=== PATIENT | male | born 1950 | race Caucasian/White ===

== ENCOUNTER 2020-12-06 13:49 | Inpatient (IN) | payer MEDICARE, SELFPAY ==
--- NOTE | ~2020-12-06 | CT_ITS ---
EXAMINATION: CT abdomen pelvis w con DATE: 12/06/2020 21:24 INDICATION: Rectal bleeding. Leukocytosis. TECHNIQUE: Computed tomography (CT) of the abdomen and pelvis was performed with 100 mL Omnipaque 350 intravenous contrast. Automated exposure control and iterative reconstruction technique were employe d. The dose-length product was 1460.53 mGy-cm. COMPARISON: None. FINDINGS: The visualized portions of the lung bases demonstrate minimal atelectasis. No pleural effus ion. The heart size is normal. No pericardial effusion. The liver, gallbladder, pancreas, and adrenal glands are normal. Calcifications in the spleen are consistent with old granulomatous disease. There are cysts in the kidneys measuring up to 3.8 cm on the right. There is a 2 mm stone in right kidney. There are 2 stones in left kidney measuring up to 4 mm. There is diverticulosis of the colon without evidence of diverticulitis. There are no dilated loops of bowel. The appendix is not visualized. The re are no pathologically enlarged lymph nodes. There is no free intraperitoneal fluid. There is sever e lower lumbar spondylosis. IMPRESSION: 1. Small bilateral nonobstructing kidney stones. Reviewed, dictated and finalized at location A.
[2020-12-06 13:57] VITALS: BP 136/60; PULSE 84; RESP 16; TEMP 35.9; O2SAT 99
[2020-12-06 14:18] LABS: Basophils Absolute Auto 0.1 K/mm3 (0.0-0.1); Basophils Percent Auto 0.5 % (0.2-1.2); Eosinophils Absolute Auto 0.2 K/mm3 (0-0.3); Eosinophils Percent Auto 1.4 % (0-4.4); Hematocrit 40.4 % (42.0-52.0); Hemoglobin 13.1 g/dL (14.0-18.0); Immature Granulocyte Absolute 0.19 K/mm3 (0.00-0.031); Immature Granulocyte Percent A 1.2 % (0-0.5); Lymphocytes Absolute Auto 1.16 K/mm3 (0.9-3.2); Lymphocytes Percent Auto 7.5 % (18.3-44.2); Mean Corpuscular HGB Conc 32.4 g/dl (32-36); Mean Corpuscular Hemoglobin 27.9 pg (26-34); Mean Corpuscular Volume 86.1 fl (80-100); Mean Platelet Volume 9.8 fl (7.4-10.4); Monocytes Absolute Auto 1.1 K/mm3 (0.1-0.6); Neutrophils Absolute Auto 12.7 K/mm3 (1.3-6.7); Neutrophils Percent Auto 82.4 % (45.5-73.1); Platelet Count Result 263 k/mm3 (150-375); Red Blood Count 4.69 M/mm3 (4.6-6.20); Red Cell Distribution Width 15.6 % (11.5-14.5); White Blood Count 15.5 K/mm3 (4.5-10.0)
[2020-12-06 14:29] LABS: Alanine Aminotransferase 20 U/L (4-50); Albumin Level 3.8 g/dL (3.5-5.1); Alkaline Phosphatase 76 U/L (38-126); Anion Gap 10 mmol/L (8-16); Aspartate Amino Transferase 19 U/L (17-59); Bilirubin,Total 0.4 mg/dL (0.2-1.3); Blood Urea Nitrogen 28 mg/dL (9-20); Calcium 9.4 mg/dL (8.4-10.2); Carbon Dioxide 20 mmol/L (22-30); Chloride 105 mmol/L (98-107); Estimated CRCL calculation 99 ml/min; Estimated Glomerular Filt Rate > 60; Glucose 125 mg/dL (65-110); Potassium 4.3 mmol/L (3.4-5.0); Sodium 135 mmol/L (137-145)
[2020-12-06 14:44] LABS: Prothrombin Time 13.4 Seconds (11.1-14.7)
[2020-12-06 14:45] LABS: Partial Thromboplastin Time 29.3 SECONDS (22.3-36.8)
--- NOTE | 2020-12-06 16:34 | ED.GIBLEED ---
HPI - GI Bleed General Chief complaint: GI Bleed Stated complaint: rectal bleeding Time Seen by Provider: 12/06/20 16:03 Source: patient and RN notes reviewed Mode of arrival: ambulatory Limitations: no limitations History of Present Illness HPI Narrative: This is a 70 year old male who presents for evaluation of rectal bleeding starting yesterday. He was evaluated yesterday in the emergency department at [facility]. He had labs performed and he was discharged. He has been scheduled for an upper endoscopy and colonoscopy on Wednesday with Dr. Kimble. He has returned to ER today because he has continued to have multiple episodes of bleeding. He states this morning he passed stool with large blood clots. He has had at least 4 episode of passing nothing but blood clots. He reports having a colonoscopy in the past that shows polyps but he is unsure of diverticuli or hemorrhoids. He denies abdominal pain, nausea, vomiting, lightheadedness or fever. He takes aspirin 81 mg for heart disease. Related Data Home Medications Medication Instructions Recorded Confirmed atorvastatin 40 mg PO QPM 12/06/20 12/06/20 celecoxib 200 mg PO QAM AND QPM 12/06/20 12/06/20 diclofenac sodium 75 mg PO BID 12/06/20 12/06/20 finasteride [Proscar] 5 mg PO DAILY 12/06/20 12/06/20 fluticasone propionate 2 spray INTRANASAL DAILY PRN 12/06/20 12/06/20 metoprolol succinate 50 mg PO DAILY 12/06/20 12/06/20 omeprazole 40 mg PO DAILY 12/06/20 12/06/20 tamsulosin 0.4 mg PO HS 12/06/20 12/06/20 Allergies Allergy/AdvReac Type Severity Reaction Status Date / Time ciprofloxacin Allergy Cramping Verified 12/06/20 21:15 of the Muscles Review of Systems Review of Systems: All systems reviewed & are unremarkable except as noted in HPI and below PMFSH Past Medical History Medical History Arthritis Benign prostatic hyperplasia Gastroesophageal reflux disease Hyperlipidemia Hypertension Surgical History Surgical History History of bilateral knee replacement History of fusion of cervical spine History of hemorrhoidectomy History of lumbar surgery History of repair of left rotator cuff Family History Family History (Updated 12/06/20 @ 21:51 by Ellie Renner, RN) Other Malignant neoplasm of prostate Mother Chronic obstructive pulmonary disease FH: emphysema Sibling Diabetes mellitus Social History Social History (Updated 12/06/20 @ 21:51 by Ellie Renner, RN) Social History: The patient lives in [place] with his . 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 Lifelong nonsmoker. Drinks alcohol once a week in moderation. No illicit substance abuse. Designates his , Roxana, as his surrogate decision maker. Code status: Full code. Smoking status: Never smoker Drinks per week: 4 Substance use: current Substance use type: marijuana Living arrangements: with family Occupation/Education: retired Gender identity (if verbalized by the patient): Male Spiritual care concerns: No Exam Const: General: no acute distress and alert Orientation/consciousness: patient oriented x3 Eyes: EOM: EOMs intact bilaterally Resp: Effort & Inspection: normal respiratory effort and no retractions Auscultation: clear to auscultation bilaterally Cardio: Rate: regular rate Rhythm: regular rhythm Heart sounds: no murmurs GI: GI Palp: Yes Soft to palpation, No Tenderness to palpation present (GI) and No Guarding due to palpation present (GI) Auscultation: normal bowel sounds Other: no external hemorrhoids: digital exam shows dark blood Skin: General skin exam: normal color Rashes: no rashes Neuro: General: patient oriented x3, moves all extremities and CN's II-XI intact bilaterally Course Reevaluation(s) Reevaluation #1: I have have discussed plan to admit with patient. He is agreeable. No bleeding at this time Date: 12/06/20 Time:
[2020-12-06 17:50] VITALS: BP 129/58; PULSE 79; RESP 18; O2SAT 100
[2020-12-06 19:49] LABS: Hematocrit 41.6 % (42.0-52.0); Hemoglobin 13.4 g/dL (14.0-18.0)
--- NOTE | 2020-12-06 20:00 | PM.IMHP ---
H&P: HPI History of Present Illness Date/Time: 12/06/20 20:00 Chief Complaint: Bloody stools. Narrative: This is a pleasant 70-year-old male with history of hemorrhoids, GERD, hypertension, hyperlipidemia, benign prostatic hyperplasia presented to the emergency department earlier today via private vehicle from home for evaluation of bloody stools. He was in his usual state of health yesterday and some time around 15:00 he had the urge to have a bowel movement and reports passing quite a bit of blood with blood clots. He had several episodes thereafter and in fact was seen in the emergency department at [facility] in [place], where he typically gets a majority of his care, at which time his labs were stable and it was felt that he would be okay for discharge with for an outpatient colonoscopy. It is my understanding that he is scheduled for endoscopy this coming Wednesday with Dr. Kimble. Unfortunately he continues to have bloody stools and has been passing large amounts of clots. He had similar rectal bleeding albeit in lesser amounts many years ago prior to his hemorrhoidectomy. He has not had any issues with hemorrhoids recently, to his knowledge. He has not had any significant abdominal discomfort, nausea, vomiting, or bloating. No fever, chills, or sweats. He has not traveled recently and denies sick contacts. No history of C diff however he did take prophylactic antibiotics prior to a dental procedure sometime last week. Review of Systems Review of Systems: Twelve systems were reviewed with pertinent positives and negatives as per HPI. No syncope or near syncope though he felt lightheaded with his most recent bowel movement before coming back to the ER today. He denies chest pain, pleuritic pain, and palpitations. No shortness of breath. No recent cold or flu symptoms. He denies cough and shortness of breath. No chest pain. He is fully vaccinated for COVID. He has been having issues with his right shoulder and I believe he does have a known rotator cuff tear. Except as documented, all other systems were reviewed and are negative. [facility] Past Medical History Medical History (Updated 12/06/20 @ 21:07 by Raven Zeng PA-C) Arthritis Benign prostatic hyperplasia Gastroesophageal reflux disease Hyperlipidemia Hypertension Surgical History Surgical History (Updated 12/06/20 @ 21:00 by Raven eZng PA-C) History of bilateral knee replacement History of fusion of cervical spine History of hemorrhoidectomy History of lumbar surgery History of repair of left rotator cuff Family History Family History Other Malignant neoplasm of prostate Social History Social History (Updated 12/06/20 @ 21:02 by Raven Zeng PA-C) Social History: The patient lives in [place] with his . 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 Lifelong nonsmoker. Drinks alcohol once a week in moderation. No illicit substance abuse. Designates his , Roxana, as his surrogate decision maker. Code status: Full code. Drinks per week: 4 Substance use: current Substance use type: marijuana Gender identity (if verbalized by the patient): Male Spiritual care concerns: No Meds Home Medications and Allergies Home Medications Medication Instructions Recorded Confirmed Type atorvastatin 12/06/20 History celecoxib mg 12/06/20 History diazepam 12/06/20 History docusate sodium PO 12/06/20 History finasteride mg 12/06/20 History fluticasone propionate INTRANASAL 12/06/20 History metoprolol succinate PO 12/06/20 History omeprazole 12/06/20 History tamsulosin mg PO 12/06/20 12/06/20 History Allergies Allergy/AdvReac Type Severity Reaction Status Date / Time ciprofloxacin Allergy Cramping Verified 12/06/20 18:52 of the Muscles Vital Signs Vital Signs - 24 hr 12/06/20 13:57 12/06/20 17:50 Temperature 96.7 F L Pulse Rate 84 79 Respiratory Rate 16 18 Blood Pr
--- NOTE | 2020-12-06 20:50 | ADMGEN ---
This patient, Blaine Riddle III, was admitted to Medical Room 349-01. Patient/family oriented to hospital policies and general routines including ID bracelet, bed and alarms, visiting hours, pain management, procedures, bathroom and other care routines, personal items, smoking policy, room service/diet, and visiting hours. Information on how to activate the Rapid Response Team has been discussed. Patient/Family are encouraged to report perceived risks to care and to ask questions if they do not understand what they are told or what they should do.
[2020-12-06 21:03] VITALS: BMI 36.3
--- NOTE | 2020-12-06 21:12 | PC.NURSE ---
Patient down to CT via wheelchair.
--- NOTE | 2020-12-06 21:30 | PC.NURSE ---
Patient returned to room from CT via wheelchair.
[2020-12-06 22:00] VITALS: BP 138/92; PULSE 82; RESP 20; TEMP 36.1; O2SAT 98
[2020-12-06] MEDS: MELATONIN 5 MG TABLET PO (22:44)
[2020-12-06 22:49] LABS: Alanine Aminotransferase 17 U/L (4-50); Albumin Level 3.6 g/dL (3.5-5.1); Alkaline Phosphatase 73 U/L (38-126); Aspartate Amino Transferase 16 U/L (17-59); Bilirubin,Total 0.7 mg/dL (0.2-1.3)
[2020-12-06] MEDS: TAMSULOSIN HCL 0.4 MG CAPSULE PO (23:59)
[2020-12-06] MEDS: ATORVASTATIN 40 MG TABLET PO (23:59)
[2020-12-07 01:17] LABS: Hematocrit 36.2 % (42.0-52.0); Hemoglobin 11.6 g/dL (14.0-18.0)
[2020-12-07 06:00] VITALS: BP 121/56; PULSE 67; RESP 18; TEMP 36.6; O2SAT 97
[2020-12-07 06:13] LABS: Hematocrit 35.9 % (42.0-52.0); Hemoglobin 11.6 g/dL (14.0-18.0); Mean Corpuscular HGB Conc 32.3 g/dl (32-36); Mean Corpuscular Hemoglobin 28.1 pg (26-34); Mean Corpuscular Volume 86.9 fl (80-100); Mean Platelet Volume 9.5 fl (7.4-10.4); Platelet Count Result 175 k/mm3 (150-375); Red Blood Count 4.13 M/mm3 (4.6-6.20); Red Cell Distribution Width 15.5 % (11.5-14.5); White Blood Count 10.1 K/mm3 (4.5-10.0)
[2020-12-07 06:32] LABS: Anion Gap 6 mmol/L (8-16); Blood Urea Nitrogen 22 mg/dL (9-20); Calcium 8.9 mg/dL (8.4-10.2); Carbon Dioxide 24 mmol/L (22-30); Chloride 103 mmol/L (98-107); Estimated CRCL calculation 93 ml/min; Estimated Glomerular Filt Rate > 60; Glucose 123 mg/dL (65-110); Potassium 4.3 mmol/L (3.4-5.0); Sodium 133 mmol/L (137-145)
[2020-12-07 08:06] VITALS: PULSE 67
[2020-12-07] MEDS: FINASTERIDE 5 MG TABLET PO (08:06)
[2020-12-07] MEDS: METOPROLOL SUCCINATE EXT REL 50 MG TABCR PO (08:06)
[2020-12-07] MEDS: PANTOPRAZOLE 40 MG TABLET PO (08:06)
[2020-12-07 11:20] VITALS: O2SAT 95
[2020-12-07 11:56] LABS: Hematocrit 36.7 % (42.0-52.0); Hemoglobin 12.1 g/dL (14.0-18.0)
--- NOTE | 2020-12-07 12:48 | PCRCNOTE ---
PT. STATES HE DOESN'T WANT TO WEAR A CPAP WHILE HERE BUT HE WILL LET THE NURSE KNOW IF HE CHANGES HIS MIND. R.N. IS AWARE.
--- NOTE | 2020-12-07 13:38 | PM.IMPN ---
Progress Note: A&P Assessment and Plan (1) Lower GI bleed: Code(s): K92.2 - Gastrointestinal hemorrhage, unspecified Status: Acute Assessment and Plan: Patient has been passing fairly large quantities of bright red blood per rectum admixed with clots thus the bleed is likely hemorrhoidal or diverticular in nature. He was admitted overnight for close observation And consult to the GI specialist. patient's hemoglobin on arrival was 13, and decreased to 11 this morning. patient does have a colonoscopy scheduled for Wednesday (12/10) as an outpatient We are continuing to monitor H&H Q 6 hours. No need for acute transfusion at this time. GIs input is appreciated. (2) Leukocytosis: Code(s): D72.829 - Elevated white blood cell count, unspecified Status: Acute Assessment and Plan: CT of the abdomen and pelvis was completed which was showing no acute abnormality. No signs of diverticulitis. Patient does have a long history of frequent UTIs but states this is all been resolved since having a large kidney stone removed a few months ago. He denies any urinary tract symptoms, shortness of breath, cough or any other symptoms at this time. (3) Hypertension: Code(s): I10 - Essential (primary) hypertension Status: Acute Assessment and Plan: Blood pressures 121/56 today. Will continue holding home blood pressure medication since he is NPO at this time. Continue monitoring. (4) Gastroesophageal reflux disease: Code(s): K21.9 - Gastro-esophageal reflux disease without esophagitis Status: Acute Assessment and Plan: No acute issues. Continue PPI. (5) Hyperlipidemia: Code(s): E78.5 - Hyperlipidemia, unspecified Status: Acute Assessment and Plan: LFTs are normal. Continue statin once able to eat and drink. (6) Benign prostatic hyperplasia: Code(s): N40.0 - Benign prostatic hyperplasia without lower urinary tract symptoms Status: Acute Assessment and Plan: No acute issues. Continue tamsulosin and finasteride. (7) Arthritis: Code(s): M19.90 - Unspecified osteoarthritis, unspecified site Status: Chronic Assessment and Plan: Hold Celebrex for now in light of GI bleed. Time Spent With Patient Time with patient: 25 - 35 minutes Subjective Date/time seen: 12/07/20 13:38 Interval history: Date of service 12/07/2020: patient reports passing bright red blood and dark clots in his stool since 12/05 at 3:30 pm. He continues to have bright red blood on the toilet paper as well as some dark clots in some bowel movements. His last colonoscopy was 10 years ago and he has another repeat colonoscopy scheduled for Wednesday, Prior to all this blood being present. He denies any fevers, chills, nausea, vomiting, abdominal pain, lightheadedness, dizziness, leg swelling, calf pain, chest pain, shortness of breath, or any other symptoms at this time. Review of Systems Review of Systems: All systems reviewed & are unremarkable except as noted in HPI and below Exam Narrative: General: 70-year-old man standing up walking around the room. Appears comfortable. In no acute distress. Skin: No jaundice or cyanosis. Good skin turgor. Neck: Full range of motion. Supple. Respiratory: Lungs are clear to auscultation bilaterally. No bony chest wall tenderness. Cardiovascular: The heart has a regular rate and rhythm without murmur. Lower extremities: No lower extremity edema. Distal pulses are easily palpated. No calf tenderness to palpation. Gastrointestinal: The abdomen is soft, nontender and nondistended with active bowel sounds. Psychiatric: Lucid and oriented. Memory intact. Neurologic: No focal deficits. Speech is clear. No facial drooping. Objective Data Vital Signs Vital Signs: Vital Signs - 24 hr 12/06/20 13:57 12/06/20 17:50 12/06/20 22:00 Temperature 96.7
[2020-12-07 14:00] VITALS: BP 128/69; PULSE 73; RESP 16; TEMP 37.1; O2SAT 98
--- NOTE | 2020-12-07 16:40 | WPDGICN ---
Assessment and Plan Assessment and plan (1) GI bleed: Code(s): K92.2 - Gastrointestinal hemorrhage, unspecified <Ava Martinez APRN - Last Filed: 12/07/20 16:58> Status: Acute <Ava Martinez APRN - Last Filed: 12/07/20 16:58> Assessment and Plan: GI Consultation Shelia Martinez K[employer]TER for Dr. Camarena 12/07/20 This is an 70 year old patient with a history of GERD, HLD, HTN, BPH, Hemorrhoids s/p hemorrhoidectomy, bilateral knee replacement, spinal fusion, left rotator cuff repair, appendectomy, and hx of kidney stones. who now presents for evaluation of bright red rectal bleeding. Patient is seen at the request of the Hospitalist service to evaluate for . The patient?s primary care provider is Dr. Christian. Primary gastroenterology is Dr. Kimble. His , Roxana was present during consult. Patient present to ER for bright red rectal bleeding that started in large amounts with clots on 12/05. [facility] [place] and discharged home as it was stable. Bleeding continued and presented to ER at [place]. Since admission rectal bleeding and clots have become less frequent. He did show a picture in his phone of his stool and appeared to be melanous with bright red blood and clots. He has been alternating multiple NSAIDS and recently Celebrax 200 mg BID two weeks ago for arthritic pain along with combination of ASA 81 mg daily. Last BM with trace bleeding with small clots and malodorous. Pyrosis controlled with PPI. Last colonoscopy was greater than 10 years ago. Last EGD was greater than 20. He is scheduled on Sunday 12/[address] Kimble for EGD and Colonoscopy. Patient denies abdominal pain, nausea or vomiting, trouble swallowing, bloating, loss of appetite or weight, early satiety, heartburn, diarrhea or constipation, rectal bleeding or melena. Patient denies fever, jaundice, scleral icterus, dark urine, light stool, itching, hot or cold intolerance, chest pain, shortness of breath at rest, hematuria, dysuria, new cough or visual changes, easy bruising, tingling of the skin, bone pain or tremors. No history of endocarditis, rheumatic fever, dental prophylaxis, heart valve surgery, or bleeding disorder. Allergies: Ciprofloxacin Medications: see list Social history: nonsmoker, social drinker, marijunana user. and lives with , Roxana Family history: negative for GI malignancy. Last colonoscopy was greater than 10 years ago. Last EGD over 20 years ago. Physical exam: No lower extremity edema, jaundice, spider angioma, palmar erythema. Skull is normocephalic atraumatic. Sclera are non-icteric. Oropharynx is clear. Neck is supple without thyromegaly. Lungs are clear. Heart is rate and rhythm regular. S1 and S2 normal. Normal active bowel sounds. Obese, Non-tender, non-rigid, non-distended without hepatosplenomegaly or masses. No guarding. Rectal is deferred. Neuro is conscious and alert ?3. Labs: 12/07: wbc 10, hgb 12, hct 36, mcv 87, platelets 175, LFT normal Imaging: CT abd/pelvis with contrast: small bilateral non obstructing kidney stones, diverticulosis without diverticulitis. Assessment and plan: A. Hematochezia/Melena/Abnormal Imaging-Digestive/GERD/Acute Blood loss anemia: -Upper GI bleed secondary to PUD vs diverticular bleed vs. AVMS vs. hemorrhoids vs. neoplasm -multiple NSAIDs and ASA -CT abd/pelvis showed diverticulosis with no evidence of diverticulitis -recently started on Celebrex 200 mg BID -hematochezia has been improving -Last BM was formed this am with small amount of blood with clots -hgb 12, hct 36, mcv 87 -hgb/hct stable -continue to monitor H&H, transfuse as needed -Care with NSAIDs, ASA and anticoagulants -Protonix 40 mg BID and add carafate 1 gram AC/HS -Advised to keep scheduled EGD/Colonoscopy 12/[address] Kimble -If bleeding resumes or H&H has large decline, consider monitoring and EGD/Colon Wednesday -okay for discharge if labs stable Thank yo
[2020-12-07] MEDS: ATORVASTATIN 40 MG TABLET PO (17:23)
[2020-12-07 20:26] LABS: Hematocrit 36.9 % (42.0-52.0)
[2020-12-07] MEDS: MELATONIN 5 MG TABLET PO (20:32)
[2020-12-07] MEDS: SUCRALFATE 1 GM TABLET PO (20:32)
[2020-12-07] MEDS: TAMSULOSIN HCL 0.4 MG CAPSULE PO (20:32)
[2020-12-07] MEDS: PANTOPRAZOLE SODIUM IV 40 MG VIAL IV PUSH (20:32)
[2020-12-07 21:00] VITALS: BP 143/78; PULSE 65; RESP 18; TEMP 36.7; O2SAT 98
[2020-12-08 05:54] VITALS: BP 131/66; PULSE 63; RESP 18; TEMP 36.1; O2SAT 99
[2020-12-08] MEDS: SUCRALFATE 1 GM TABLET PO ×2 (06:17→11:46)
[2020-12-08 08:44] VITALS: PULSE 63
[2020-12-08] MEDS: METOPROLOL SUCCINATE EXT REL 50 MG TABCR PO (08:44)
[2020-12-08] MEDS: FINASTERIDE 5 MG TABLET PO (08:44)
[2020-12-08] MEDS: PANTOPRAZOLE SODIUM IV 40 MG VIAL IV PUSH (08:45)
[2020-12-08 10:09] LABS: Hematocrit 35.6 % (42.0-52.0); Hemoglobin 11.6 g/dL (14.0-18.0); Mean Corpuscular HGB Conc 32.6 g/dl (32-36); Mean Corpuscular Hemoglobin 27.6 pg (26-34); Mean Corpuscular Volume 84.8 fl (80-100); Mean Platelet Volume 9.6 fl (7.4-10.4); Platelet Count Result 205 k/mm3 (150-375); Red Cell Distribution Width 14.9 % (11.5-14.5); White Blood Count 11.4 K/mm3 (4.5-10.0)
--- NOTE | 2020-12-08 12:07 | WPDGIPROGNO ---
Progress Note: A&P Additional Plan GI Migue Kimble 08 Dec 2020 No BRBPR, melena ort other gi compliants Abdominal exam soft/NT Pertinent labs: Hct 36 A/P A. GERD: PPI B. Hematochezia/Melena/Abnormal Imaging-Digestive and acute Blood loss anemia on NSAIDS and aspirin: -Upper GI bleed secondary to PUD vs diverticular bleed vs. AVMS vs. hemorrhoids vs. neoplasm -multiple NSAIDs and ASA -CT abd/pelvis showed diverticulosis with no evidence of diverticulitis -recently started on Celebrex 200 mg BID -hematochezia has been improving -Last BM was formed this am with small amount of blood with clots -hgb 12, hct 36, mcv 87 -hgb/hct stable -continue to monitor H&H, transfuse as needed -Care with NSAIDs, ASA and anticoagulants -Protonix 40 mg BID and add carafate 1 gram AC/HS OK with me for discharge. Advised to keep scheduled EGD/Colonoscopy 12/[address] Shyanne Boogie per Hospitalist service. Thank you, Agapito Camarena MD [phone] Subjective Date/time seen: 12/08/20 12:07 Objective Data Vital Signs Vital Signs: Vital Signs - 24 hr 12/07/20 14:00 12/07/20 21:00 12/08/20 05:54 Temperature 37.1 C 36.7 C 36.1 C L Pulse Rate 73 65 63 Respiratory Rate 16 18 18 Blood Pressure 128/69 143/78 H 131/66 Pulse Oximetry 98 98 99 12/08/20 08:44 Temperature Pulse Rate 63 Respiratory Rate Blood Pressure Pulse Oximetry Intake/Output Intake/Output: Intake & Output 12/05/20 12/06/20 12/07/20 12/08/20 23:59 23:59 23:59 23:59 Intake Total 100 2117 1310 Output Total 2730 950 Balance 100 -613 360 Meds/Results Medications: Active Medications Generic Name Dose Route Start Last Admin Trade Name Freq PRN Reason Stop Dose Admin Amlodipine Besylate 5 mg 12/08/20 18:00 Amlodipine Besylate 5 Mg Tablet PO DAILY@1800 LUCY Atorvastatin Calcium 40 mg 12/06/20 23:40 12/07/20 17:23 Atorvastatin 40 Mg Tablet PO 40 mg QPM LUCY Administration Finasteride 5 mg 12/07/20 09:00 12/08/20 08:44 Finasteride 5 Mg Tablet PO 5 mg DAILY LUCY Administration Fluticasone Propionate 2 spray 12/06/20 23:34 Fluticasone Propionate 0.05% Na Spr 16 Gm Btl (*Bkc) NASAL DAILY PRN Allergy Symptoms Melatonin 5 mg 12/06/20 21:57 12/07/20 20:32 Melatonin 5 Mg Tablet PO 5 mg HS PRN Administration Insomnia Metoprolol Succinate 50 mg 12/07/20 09:00 12/08/20 08:44 Metoprolol Succinate Ext Rel 50 Mg Tabcr PO 50 mg DAILY LUCY Administration Ondansetron HCl 4 mg 12/06/20 17:29 Ondansetron Inj 4 Mg/2 Ml Vial IV PUSH Q4H PRN Nausea Pantoprazole Sodium 40 mg 12/07/20 21:00 12/08/20 08:45 Pantoprazole Sodium Iv 40 Mg Vial IV PUSH 40 mg Q12HR LUCY Administration Sucralfate 1 gm 12/07/20 21:00 12/08/20 11:46 Sucralfate 1 Gm Tablet PO 1 gm ACHS LUCY Administration Tamsulosin HCl 0.4 mg 12/06/20 23:40 12/07/20 20:32 Tamsulosin Hcl 0.4 Mg Capsule PO 0.4 mg HS LUCY Administration Radiology Results: ITS Impressions Abdomen/Pelvis CT 12/06/20 21:28 IMPRESSION: 1. Small bilateral nonobstructing kidney stones. Labs Labs: Laboratory Results - last 24 hr 12/07/20 12/08/20 12/08/20 19:55 09:26 09:26 WBC 11.4 H RBC 4.20 L Hgb 12.0 L Cancelled 11.6 L Hct 36.9 L Cancelled 35.6 L MCV 84.8 MCH 27.6 MCHC 32.6 RDW 14.9 H Plt Count 205 MPV 9.6
--- NOTE | 2020-12-08 13:04 | PM.DS ---
DS: Admitting Diagnosis Admitting Diagnosis Hematochezia DS: Discharge Diagnosis Discharge Diagnosis (1) Lower GI bleed: Code(s): K92.2 - Gastrointestinal hemorrhage, unspecified Status: Acute Assessment and Plan: Patient is a 70-year-old man with a history of hemorrhoids, GERD, hypertension, dyslipidemia, BPH, who presented to the emergency room from home for evaluation of bloody stools and clots of blood in his stools which began 12/05 at 3:30 pm. he was seen at [facility] in [place] for his symptoms on due to worsening symptoms. they evaluated his labs and determined he was stable to be discharged with a sooner EGD in colostomy scheduled for Wednesday12/10/2020. The patient went home and had more symptoms a few hours later and came to our emergency room for further evaluation. Initial vitals showed stable blood pressure 136/60, normal pulse 84 beats per minute, temperature normal, normal oxygenation on room air. Initial labs showed slightly elevated leukocytosis at 15,500, Slight elevation of neutrophils at 82%,normocytic anemia with a hemoglobin of 13, hematocrit 40%. normal coag panel. Slight hyponatremia at 135. Otherwise normal labs. CT abdomen pelvis was checked due to leukocytosis. Which showed small bilateral nonobstructing kidney stones, otherwise no acute abnormality or infection. Blood cultures were obtained showing no growth at this time. The patient was admitted into the hospital for GI bleed with a consult to the GI specialist. He did have a slight decrease in his hemoglobin and hematocrit to 11.6/35%. patient's symptoms was improving with IV Protonix during his hospitalization. Patient has been increasing his NSAID use recently due to some arthritis issues to his right shoulder and bilateral knees. He was seen by the GI specialist to recommended if his symptoms are improving and H&H stable he can follow-up with his outpatient EGD and colonoscopy in 2 days on 12/10/2020. Patient is otherwise feeling well without any complaints and normal is resolution of his symptoms. He was discharged on pantoprazole 40 mg twice daily, to refrain from any NSAID use. Return to ER warnings given. Patient understands agrees the plan all questions answered. (2) Leukocytosis: Code(s): D72.829 - Elevated white blood cell count, unspecified Status: Acute Assessment and Plan: CT of the abdomen and pelvis was completed which was showing no acute abnormality. No signs of diverticulitis. Patient does have a long history of frequent UTIs but states this is all been resolved since having a large kidney stone removed a few months ago. He denies any urinary tract symptoms, shortness of breath, cough or any other symptoms at this time. (3) Hypertension: Code(s): I10 - Essential (primary) hypertension Status: Acute Assessment and Plan: Blood pressures 131/66 today. Continue home medications. (4) Gastroesophageal reflux disease: Code(s): K21.9 - Gastro-esophageal reflux disease without esophagitis Status: Acute Assessment and Plan: No acute issues. Continue PPI. (5) Hyperlipidemia: Code(s): E78.5 - Hyperlipidemia, unspecified Status: Acute Assessment and Plan: LFTs are normal. Continue statin once able to eat and drink. (6) Benign prostatic hyperplasia: Code(s): N40.0 - Benign prostatic hyperplasia without lower urinary tract symptoms Status: Acute Assessment and Plan: No acute issues. Continue tamsulosin and finasteride. (7) Arthritis: Code(s): M19.90 - Unspecified osteoarthritis, unspecified site Status: Chronic Assessment and Plan: Hold Celebrex until EGD/Colonoscopy to see findings for acute GI bleeding. DS: Summary Hospital Course Hospital Course: See above Status at Discharge Cognitive/behavioral status at discharge: Stable, improv
== END 2020-12-08 14:25 | disposition home or self-care (01) | DRG 378 ==
LOC: ANHED 16:42 → ANH3MED 18:38
PROVIDERS: Emergency Medicine; Nurse Practitioner; Physician Assistant; Admitting Provider Student in an Organized Health Care Education/Training Program; Emergency Provider General Practice; PCP Internal Medicine; Visit Provider Internal Medicine
DX: K92.1 Melena (principal); D62 Acute posthemorrhagic anemia; D72.829 Elevated white blood cell count, unspecified; R93.3 Abnormal findings on diagnostic imaging of other parts of digestive tract; I10 Essential (primary) hypertension; K21.9 Gastro-esophageal reflux disease without esophagitis; E78.5 Hyperlipidemia, unspecified; N40.0 Benign prostatic hyperplasia without lower urinary tract symptoms; M19.011 Primary osteoarthritis, right shoulder; Z96.653 Presence of artificial knee joint, bilateral; Z98.1 Arthrodesis status; Z79.1 Long term (current) use of non-steroidal anti-inflammatories (NSAID); Z79.899 Other long term (current) drug therapy
CPT/HCPCS: 36415; 74177; 80048; 80053; 80076; 83605; 83735; 85014; 85018; 85025; 85027; 85610; 85730; 86850; 86900; 86901; 87040; 96374; 99285; A9270; C9113; G0378; J0131; Q9967

== ENCOUNTER 2020-12-10 01:04 | Day surgery (SDC) | payer MEDICARE, SELFPAY ==
[2020-12-09 10:52] VITALS: BMI 39.0
[2020-12-10 07:03] VITALS: BP 128/51; PULSE 79; RESP 18; TEMP 36; O2SAT 98; BMI 38.3
--- NOTE | 2020-12-10 07:25 | WPDGICN ---
Assessment and Plan Assessment and plan (1) Rectal bleeding: Code(s): K62.5 - Hemorrhage of anus and rectum Status: Acute Assessment and Plan: Patient with recurrent recent rectal bleeding. Differential diagnosis is broad but includes hemorrhoids, diverticular disease, and polyps. Colonoscopy will be performed further recommendations will be given after endoscopy. (2) Chronic GERD: Code(s): K21.9 - Gastro-esophageal reflux disease without esophagitis Status: Acute Assessment and Plan: Patient with a history of acid reflux. He has an esophageal web dilated many years ago. He has been maintained on omeprazole daily with no recurrent heartburn. Because of chronicity of symptoms or recent bleeding an EGD will be performed today. (3) Overweight: Code(s): E66.3 - Overweight Status: Acute (4) History of colon polyps: Code(s): Z86.010 - Personal history of colonic polyps Status: Acute Assessment and Plan: Patient previously found to have colon polyps. Previous endoscopies 2003 2006. Further recommendations will be given after endoscopy given this history. GI Consult Note Consult date/time: 12/10/20 07:25 HPI: Blaine Riddle III is a 70 year old male Presents with complaints of bright red blood per rectum. Patient has a distant history of colonoscopy: Polyps were identified in 2003 in 2006. Limited exam was performed by Dr. Howe several years ago and apparently hemorrhoids were identified. Patient did well until for 5 days ago when he began to experience bright red blood per rectum. Initially he was observed at [facility]. Hemoglobin stable he was discharged however had recurrent blood in stools and was admitted overnight at [facility] this weekend. Patient denies abdominal pain. His hemoglobin has remained stable. He is quite concerned about this recent bleeding. He does have a distant history of GE reflux disease felt stable with omeprazole. Previously he had a mild esophageal web or stricture. He has taken omeprazole for perhaps 20 years. Because of bleeding and history of GE reflux EGD is additionally requested. Patient's family history is noncontributory. Review of Systems Review of Systems: All systems reviewed & are unremarkable except as noted in HPI and below [facility] Past Medical History Medical History (Updated 12/10/20 @ 07:29 by Cody Kimble MD) Benign essential hypertension Cyst of scrotum Mixed hyperlipidemia Nephrolithiasis Obstructive sleep apnea (adult) (pediatric) Prediabetes Primary insomnia Primary osteoarthritis involving multiple joints UTI (urinary tract infection) Surgical History Surgical History H/O right knee surgery Social History Social History (Updated 11/06/20 @ 10:40 by Nilda Vivar MA) Smoking status: Never smoker Alcohol intake: current Drinks per week: 6 Alcohol use details: social Substance use: current Substance use type: marijuana Last use: once a month Living arrangements: with family Gender identity (if verbalized by the patient): Male Spiritual care concerns: No Meds Home Medications and Allergies Home Medications Medication Instructions Recorded Confirmed Type oxymetazoline 0.05 % nasal mist 2 spray NASAL Q12H PRN 12/25/19 12/10/20 History atorvastatin 40 mg tablet 40 mg PO DAILY #90 tablet 05/01/20 12/10/20 Rx tamsulosin 0.4 mg capsule 0.4 mg PO BID #180 cap 05/01/20 12/10/20 Rx metoprolol succinate 25 mg 50 mg PO DAILY tablet 07/05/20 12/10/20 History tablet,extended release 24 hr fluticasone propionate 50 2 spray NASAL DAILY #15.8 ml 11/18/20 12/10/20 Rx mcg/actuation nasal spray,suspension amlodipine 5 mg tablet 5 mg PO DAILY #90 tablet 11/26/20 12/10/20 Rx finasteride 5 mg PO DAILY 12/09/20 12/10/20 History loratadine [Claritin] 10 mg PO DAILY 12/09/20 12/10/20 History pantopr
[2020-12-10] MEDS: LACTATED RINGERS 1,000 ML 150 ML IV CONT (07:27)
--- NOTE | 2020-12-10 07:50 | WPDANESEPPF ---
Anes - Initial Pre Proc Eval Procedure: Operation Date: 12/10/20 08:00 Proposed Procedures p Esophagogastroduodenoscopy & Screening Colonoscopy - Cody Kimble MD Date/Time: 12/10/20 07:50 Surgeon: Cody Kimble MD Pre Op Diagnosis: GERD, hx of colon polyps, rectal bleeding Patient Data Age: 70 Gender: M Height: 1.75 m Weight: 117.7 kg Last Vital Signs Temp 36.0 C L 12/10/20 07:03 Pulse 79 12/10/20 07:03 Resp 18 12/10/20 07:03 BP 128/51 L 12/10/20 07:03 Pulse Ox 98 12/10/20 07:03 Allergies Allergy/AdvReac Type Severity Reaction Status Date / Time ciprofloxacin AdvReac tendon pain Verified 12/10/20 07:00 Home Medications Medication Instructions Recorded Confirmed Type oxymetazoline 0.05 % nasal mist 2 spray NASAL Q12H PRN 12/25/19 12/10/20 History atorvastatin 40 mg tablet 40 mg PO DAILY #90 tablet 05/01/20 12/10/20 Rx tamsulosin 0.4 mg capsule 0.4 mg PO BID #180 cap 05/01/20 12/10/20 Rx metoprolol succinate 25 mg 50 mg PO DAILY tablet 07/05/20 12/10/20 History tablet,extended release 24 hr fluticasone propionate 50 2 spray NASAL DAILY #15.8 ml 11/18/20 12/10/20 Rx mcg/actuation nasal spray,suspension amlodipine 5 mg tablet 5 mg PO DAILY #90 tablet 11/26/20 12/10/20 Rx finasteride 5 mg PO DAILY 12/09/20 12/10/20 History loratadine [Claritin] 10 mg PO DAILY 12/09/20 12/10/20 History pantoprazole 40 mg PO BID 12/09/20 12/10/20 History Patient hx anesthesia problems: none Family hx anesthesia problems: none PMFSH Past Medical History Medical History Benign essential hypertension Cyst of scrotum Mixed hyperlipidemia Nephrolithiasis Obstructive sleep apnea (adult) (pediatric) Prediabetes Primary insomnia Primary osteoarthritis involving multiple joints UTI (urinary tract infection) Surgical History Surgical History H/O right knee surgery Social History Social History Smoking status: Never smoker Alcohol intake: current Drinks per week: 6 Alcohol use details: social Substance use: current Substance use type: marijuana Last use: once a month Living arrangements: with family Gender identity (if verbalized by the patient): Male Spiritual care concerns: No Anes - Eval Final PreProcedure Day of Procedure 12/10/20 07:50 Patient weight: obese Heart: regular rate and rhythm Lungs: clear to auscultation Airway: Mallampati scale class II Neurological: alert and oriented Last oral intake: >/= 8 hours ASA classification: III Emergent: no Anesthetic plan: proceed Anesthesia type and monitoring: general GIVS and standard monitoring Informed Consent: The patient's anesthetic plan and its attendant risks and benefits were discussed with the patient/family/POA. Questions were solicited and answers provided to the satisfaction of the patient/family/POA.
[2020-12-10] MEDS: BENZOCAINE (*SP) 60 ML SPRAY CAN (HURRICAINE) 1 SPRAY MUCOUS MEM (08:04)
[2020-12-10 08:31] VITALS: BP 119/87; PULSE 74; RESP 18; O2SAT 99
[2020-12-10 08:41] VITALS: BP 100/58; PULSE 74; RESP 18; O2SAT 99
[2020-12-10 08:51] VITALS: BP 123/56; PULSE 66; RESP 18; O2SAT 98
== END 2020-12-10 09:05 | disposition home or self-care (01) ==
PROVIDERS: PCP Internal Medicine; Visit Provider Internal Medicine Gastroenterology
PROC: 0DJ08ZZ Inspection of Upper Intestinal Tract, Via Natural or Artificial Opening Endoscopic (ICD-10-PCS; CPT 43235; principal; 2020-12-10 08:00)
DX: K21.9 Gastro-esophageal reflux disease without esophagitis (principal); K31.7 Polyp of stomach and duodenum; K44.9 Diaphragmatic hernia without obstruction or gangrene; Q39.4 Esophageal web; K57.30 Diverticulosis of large intestine without perforation or abscess without bleeding; K64.8 Other hemorrhoids; Z86.010 Personal history of colon polyps; K62.5 Hemorrhage of anus and rectum; I10 Essential (primary) hypertension; E78.2 Mixed hyperlipidemia; G47.33 Obstructive sleep apnea (adult) (pediatric); R73.03 Prediabetes; G47.00 Insomnia, unspecified; M19.90 Unspecified osteoarthritis, unspecified site; F12.90 Cannabis use, unspecified, uncomplicated; E66.9 Obesity, unspecified; Z68.38 Body mass index [BMI] 38.0-38.9, adult
CPT/HCPCS: 43251; 43450; 45378; 88305; J2704; J7120

== ENCOUNTER 2021-02-13 14:27 | Inpatient (IN) | payer MEDICARE, SELFPAY ==
--- NOTE | ~2021-02-13 | CT_ITS ---
EXAMINATION: CT abdomen pelvis wo con DATE: 02/13/2021 17:43 INDICATION: Urinary tract infection. History of kidney stones. TECHNIQUE: Computed tomography (CT) of the abdomen and pelvis was performed without intravenous contr ast. Automated exposure control and iterative reconstruction technique were employed. Exam dose: 157 9.61 mGy-cm total exam DLP. COMPARISON: 12/06/2020 CT abdomen pelvis with IV contrast material FINDINGS: Peripheral posterolateral 3 mm left lower lobe nodule. Calcified right hilar nodes. The dayanna g bases are clear of infiltrate or consolidation. Normal heart size. No pericardial or pleural effusi on. Small sliding hiatal hernia. The liver, gallbladder, bile ducts, pancreas and pancreatic duct are unremarkable. There are multiple calcified splenic granulomas. Splenic size is within normal range. Normal morphology of the adrenal glands. 3 and 3.5 cm probable right renal cysts. At least one pinpoint nonobstructing right renal calculus. T here are 2 pinpoint nonobstructing left renal calculi and an approximately 5 mm nonobstructing lower pole left renal calculus. There is no ureteral calculus or hydroureteronephrosis. There is extensive air throughout the wall of the urinary bladder. There is a prominent air-fluid lev el within the bladder lumen. Normal caliber of the abdominal aorta. No intraperitoneal or retroperitoneal or pelvic mass lesion or adenopathy or ascites. The appendix is not visualized. There are innumerable diverticula of the left and right colon; no CT evidence of diverticulitis. No b owel obstruction, bowel wall thickening, pneumatosis or intraperitoneal free air. No suspicious osteolytic or osteoblastic lesions. There is multilevel degenerative disc disease of lumbar spine, most prominent at L4-5 and particularl y L5-S1. Degenerative spurring of the lower thoracic spine. Bilateral hip osteoarthritis. IMPRESSION: Emphysematous cystitis Bilateral nonobstructive nephrolithiasis Right renal cysts Extensive diverticulosis of left and right colon Small sliding hiatal hernia Reviewed, dictated and finalized at [facility]. Reviewed, dictated and finalized at [facility].
[2021-02-13 14:45] VITALS: BP 141/77; PULSE 86; RESP 16; TEMP 36.6; O2SAT 93
[2021-02-13 15:40] LABS: Add Urine Microscopic? YES; Appearance Urine Cloudy (Clear); Bacteria Urine 1+ /hpf; Bilirubin Urine Negative (Negative); Blood Urine 3+ (Negative); Color Urine Yellow (Yellow); Glucose Urine UA Negative (Negative); Ketones Urine Negative (Negative); Leukocyte Esterase Ur 3+ LEU/UL (Negative); Mucus Urine Rare /lpf; Nitrate Urine Negative (Negative); Protein Urine 1+ mg/dL (Negative); RBC Urine >75 /hpf (0-2); Specific Grav Ur 1.012 (1.001-1.035); Squamous Epithelial Cell Urine Rare /hpf (Few); Urobilinogen Urine Negative mg/dL (<2.0); WBC Urine >75 /hpf
--- NOTE | 2021-02-13 16:57 | ED.MALEGU ---
HPI - Male Genitourinary General Chief complaint: Urogenital-Male Stated complaint: uti Time Seen by Provider: 02/13/21 16:57 Source: patient Mode of arrival: ambulatory Limitations: no limitations History of Present Illness HPI Narrative: Patient is a 70-year-old male with a history of recurrent hypertension, hydrocele, recurrent urinary tract infections, nephrolithiasis, presenting for evaluation of positive urine culture found at his outpatient urology visit in the setting of dysuria, frequency and hematuria. Patient states he began having symptoms 3 days ago. Patient denies fever, chills or flank pain. He states he has a history of recurrent urinary tract infections with multidrug-resistant organism found in his urine culture. Patient was seen by his urologist, Dr. Adair, for later with [facility] on February 12, had a urinalysis and urine culture sent, results of urine culture were positive today, notable for Klebsiella pneumonia extended spectrum beta-lactamase, ESBL, MDRO. Patient was referred to his primary care physician, who saw him in the office today and then referred him to our emergency department for IV antibiotics. Patient lives in [facility], wanted to be seen and admitted to this facility if treatment was necessary. Patient denies any fatigue, nausea or vomiting. Patient states he has a history of nephrolithiasis in June 2019. Stone was removed by his urologist Dr. Adair at that time. No known history of recurrent renal stones. Patient denies any current abdominal pain. Patient presenting with outside paperwork. Urine culture notable for Klebsiella pneumonia extended spectrum beta-lactamase, MDRO, susceptible to amikacin, gentamicin, meropenem, piperacillin?tazobactam, resistant to ampicillin, cefazolin, cefepime, ceftriaxone, ciprofloxacin, trimethoprim?sulfamethoxazole. Related Data Home Medications Medication Instructions Recorded Confirmed oxymetazoline 0.05 % nasal mist 2 spray NASAL Q12H PRN 12/25/19 12/10/20 metoprolol succinate 25 mg 50 mg PO DAILY tablet 07/05/20 12/10/20 tablet,extended release 24 hr finasteride 5 mg PO DAILY 12/09/20 12/10/20 loratadine [Claritin] 10 mg PO DAILY 12/09/20 12/10/20 pantoprazole 40 mg PO BID 12/09/20 12/10/20 Allergies Allergy/AdvReac Type Severity Reaction Status Date / Time ciprofloxacin AdvReac tendon pain Verified 02/13/21 12:57 Review of Systems Review of Systems: CONSTITUTIONAL: Denies fever, chills, or sweats. EYES: Denies visual changes, redness, or discharge. ENT: Denies rhinorrhea, congestion, sore throat, or otalgia. CARDIOVASCULAR: Denies chest pain, palpitations, or edema. RESPIRATORY: Denies cough or dyspnea. GASTROINTESTINAL: Denies abdominal pain, nausea, vomiting, or diarrhea. GENITOURINARY: Reports dysuria and hematuria SKIN: Denies rash or itching. MUSCULOSKELETAL: Denies back pain, joint pain, or myalgia. NEUROLOGIC: Denies headache, numbness, or weakness. [facility] Past Medical History Medical History Benign essential hypertension Cyst of scrotum Mixed hyperlipidemia Nephrolithiasis Obstructive sleep apnea (adult) (pediatric) Prediabetes Primary insomnia Primary osteoarthritis involving multiple joints UTI (urinary tract infection) Surgical History Surgical History H/O right knee surgery Social History Social History Smoking status: Never smoker Second hand tobacco smoke exposure: No Alcohol intake: current Drinks per week: 6 Alcohol use details: social Substance use: current Substance use type: marijuana Last use: once a month Gender identity (if verbalized by the patient): Male Sexual Orientation (if Verbalized by the Patient): Straight or Heterosexual Spiritual care concerns: No Exam Narrative: GENERAL: Awake, alert, conversant
[2021-02-13 17:00] VITALS: BP 138/78; PULSE 74; RESP 20; TEMP 36.3; O2SAT 99
[2021-02-13 17:47] LABS: Basophils Absolute Auto 0.1 K/mm3 (0.0-0.1); Basophils Percent Auto 0.8 % (0.2-1.2); Eosinophils Absolute Auto 0.2 K/mm3 (0-0.3); Eosinophils Percent Auto 2.7 % (0-4.4); Hemoglobin 15.6 g/dL (14.0-18.0); Immature Granulocyte Percent A 1.2 % (0-0.5); Lymphocytes Absolute Auto 0.93 K/mm3 (0.9-3.2); Lymphocytes Percent Auto 10.9 % (18.3-44.2); Mean Corpuscular HGB Conc 33.2 g/dl (32-36); Mean Corpuscular Volume 84.4 fl (80-100); Mean Platelet Volume 9.3 fl (7.4-10.4); Monocytes Absolute Auto 0.5 K/mm3 (0.1-0.6); Monocytes Percent Auto 6.4 % (2.6-8.5); Neutrophils Absolute Auto 6.6 K/mm3 (1.3-6.7); Platelet Count Result 189 k/mm3 (150-375); Red Blood Count 5.57 M/mm3 (4.6-6.20); Red Cell Distribution Width 14.4 % (11.5-14.5); White Blood Count 8.5 K/mm3 (4.5-10.0)
[2021-02-13] MEDS: SODIUM CHLORIDE 0.9% IV 1,000 ML 999 ML IV CONT (17:56)
[2021-02-13 18:01] LABS: Anion Gap 9 mmol/L (8-16); Blood Urea Nitrogen 18 mg/dL (9-20); Calcium 9.6 mg/dL (8.4-10.2); Carbon Dioxide 26 mmol/L (22-30); Chloride 107 mmol/L (98-107); Estimated CRCL calculation 89 ml/min; Estimated Glomerular Filt Rate > 60; Glucose 121 mg/dL (65-110); Potassium 4.1 mmol/L (3.4-5.0); Sodium 142 mmol/L (137-145)
--- NOTE | 2021-02-13 19:58 | PM.IMHP ---
H&P: HPI History of Present Illness Date/Time: 02/13/21 19:58 Chief Complaint: Chills Narrative: This is a 70 year male with past medical history significant for hypertension, dyslipidemia, rotator cuff injury, benign prostatic hyperplasia, urolithiasis, recurrent urinary tract infection with multi-drug resistant organism. Patient presented to the emergency room today after he was seen at his primary care physician's office where a urine sample turned out to be urine tract infection. Patient states that he has been having pain and burning with urination, urinary frequency, urinary urgency, chills, fevers. He has been followed up in the outpatient setting with Urology had a recent cystoscopy with retrograde pyelograms. Patient is here for IV antibiotics he denied any discomfort at the time of my visit. Preliminary workup was significant for CT of abdomen and pelvis with emphysematous cystitis, complete blood count and basic metabolic profile were within normal limits. Review of Systems Review of Systems: Dysuria, urinary frequency ,urinary urgency, chills. Constitutional: Constitutional: Reports chills, Denies fatigue, Reports fever(s), Denies lethargy, Denies malaise and Denies weakness Eyes: Eyes: Denies change in vision ENT: Reports system reviewed and no additional complaints, except as documented Cardiovascular: Cardiovascular: Reports no additional cardiovascular complaints Respiratory: Respiratory: Reports no additional respiratory complaints Gastrointestinal: Gastrointestinal: Reports no additional gastrointestinal complaints Genitourinary: Genitourinary: Reports dysuria, Reports urinary frequency and Reports urinary urgency Integumentary/Breasts: Skin/Breast: Reports system reviewed and no additional complaints, except as docu Neurologic: Reports system reviewed and no additional complaints, except as documented Psychiatric: Psychiatric: Reports no additional psychiatric complaints Endocrine: Endocrine: Reports no additional endocrine complaints Hematologic/Lymphatic: Hematologic/Lymphatic: Reports no additional hematologic/lymphatic complaints Allergic/Immunologic: Allergic/Immunologic: Reports no additional allergic/immunologic complaints [facility] Past Medical History Medical History Benign essential hypertension Cyst of scrotum Mixed hyperlipidemia Nephrolithiasis Obstructive sleep apnea (adult) (pediatric) Prediabetes Primary insomnia Primary osteoarthritis involving multiple joints UTI (urinary tract infection) Surgical History Surgical History H/O right knee surgery Family History Family History (Updated 02/13/21 @ 21:48 by Mariann Lozoya RN) Mother Emphysema lung Chronic obstructive pulmonary disease Social History Social History Second hand tobacco smoke exposure: No Alcohol intake: current Drinks per week: 6 Alcohol use details: social Substance use: current Substance use type: marijuana Last use: once a month Gender identity (if verbalized by the patient): Male Sexual Orientation (if Verbalized by the Patient): Straight or Heterosexual Spiritual care concerns: No Meds Home Medications and Allergies Home Medications Medication Instructions Recorded Confirmed Type tamsulosin 0.4 mg capsule 0.4 mg PO BID #180 cap 05/01/20 02/13/21 Rx metoprolol succinate 25 mg 50 mg PO DAILY tablet 07/05/20 02/13/21 History tablet,extended release 24 hr fluticasone propionate 50 2 spray NASAL DAILY #15.8 ml 11/18/20 02/13/21 Rx mcg/actuation nasal spray,suspension amlodipine 5 mg tablet 5 mg PO DAILY #90 tablet 11/26/20 02/13/21 Rx finasteride 5 mg PO DAILY 12/09/20 02/13/21 History atorvastatin 40 mg tablet 40 mg PO DAILY #90 tablet 01/08/21 02/13/21 Rx Vitamin D3 25 mcg PO DAILY 02/13/21
--- NOTE | 2021-02-13 21:25 | ADMGEN ---
This patient, Blaine Riddle III, was admitted to 2 Medical Room 243-. Patient/family oriented to hospital policies and general routines including ID bracelet, bed and alarms, visiting hours, pain management, procedures, bathroom and other care routines, personal items, smoking policy, room service/diet, and visiting hours. Information on how to activate the Rapid Response Team has been discussed. Patient/Family are encouraged to report perceived risks to care and to ask questions if they do not understand what they are told or what they should do.
[2021-02-13] MEDS: ACETAMINOPHEN 500 MG TABLET 1000 MG PO (21:32)
[2021-02-13 21:33] VITALS: BP 135/63; PULSE 70; RESP 18; TEMP 36.6; O2SAT 97
[2021-02-13 21:34] VITALS: BMI 41.0
--- NOTE | 2021-02-13 23:12 | PCRCNOTE ---
Pt wears CPAP at home but does not want to wear here. No order was received. No machine is in room.
[2021-02-13] MEDS: diazePAM (*CRX) 5 MG TABLET PO (23:54)
[2021-02-14 06:00] VITALS: BP 125/71; RESP 16; TEMP 36.5; O2SAT 97
[2021-02-14] MEDS: PANTOPRAZOLE 40 MG TABLET PO (06:42)
[2021-02-14] MEDS: ACETAMINOPHEN 325 MG TABLET 650 MG PO ×2 (06:48→21:41)
[2021-02-14] MEDS: TAMSULOSIN HCL 0.4 MG CAPSULE PO ×2 (08:26→16:10)
[2021-02-14] MEDS: FLUTICASONE PROPIONATE 0.05% NA SPR 16 GM BTL (*BKC) 2 SPRAY NASAL (08:26)
[2021-02-14] MEDS: ASPIRIN 81 MG CHEWABLE TABLET PO (08:26)
[2021-02-14] MEDS: ATORVASTATIN 40 MG TABLET PO (08:26)
[2021-02-14] MEDS: FINASTERIDE 5 MG TABLET PO (08:26)
[2021-02-14] MEDS: CHOLECALCIFEROL 1,000 UNITS TABLET 1000 UNITS PO (08:26)
[2021-02-14] MEDS: amLODIPine BESYLATE 5 MG TABLET PO (08:26)
[2021-02-14] MEDS: DICLOFENAC SOD 75 MG TABLET.EC PO ×2 (08:37→21:41)
--- NOTE | 2021-02-14 12:08 | PM.IMPN ---
Progress Note: A&P Assessment and Plan (1) Urinary tract infection: Code(s): N39.0 - Urinary tract infection, site not specified Status: Acute Assessment and Plan: Patient is a 70-year-old man with a history of BPH, hydrocele, frequent UTIs, CAD, hypertension, who presented to the emergency room from his primary care's office for abnormal urine culture results. The patient states on Wednesday he developed urinary symptoms and on Wednesday called his urologist to ordered a urinalysis with reflux culture. Urine culture resulted growing Klebsiella pneumoniae ESBL with only IV antibiotics sensitive to the bacteria. The patient's urologist told him to go to his PCP who then sent into the emergency room for IV antibiotics for treatment of his UTI. Initial vitals showed elevated blood pressure 141/77, normal heart rate, afebrile, normal oxygenation on room air. Initial labs showed normal white blood cell count, elevated neutrophils at 78%. Normal H&H. Normal BMP other than glucose of 121. Urinalysis on arrival grew 3+ leukocyte esterase, and greater than 75 WBCs and 1+ bacteria but we are adding you the results of his urine culture as outpatient and so he was admitted for a multi-drug resistant UTI and started on IV Zosyn. Will continue monitoring his symptoms and he will most likely need 10 days of IV antibiotics. He may be able to stay in the hospital versus be discharged with PICC line and IV antibiotics to be set up as outpatient Continue monitoring his symptoms. Deescalate antibiotics when necessary. (2) MDRO (multiple drug resistant organisms) resistance: Status: Acute Assessment and Plan: Sensitive to Zosyn (3) Extended spectrum beta lactamase (ESBL) resistance: Code(s): Z16.12 - Extended spectrum beta lactamase (ESBL) resistance Status: Acute Assessment and Plan: Sensitive to Zosyn (4) CAD (coronary artery disease): Code(s): I25.10 - Atherosclerotic heart disease of [place] coronary artery without angina pectoris Status: Acute Assessment and Plan: Stable. Denies any chest pain. Continue home meds Continue to monitor (5) Benign essential hypertension: Code(s): I10 - Essential (primary) hypertension Status: Acute Assessment and Plan: Stable. Blood pressure normal today at 125/71. Continue home meds Continue to monitor (6) Mixed hyperlipidemia: Code(s): E78.2 - Mixed hyperlipidemia Status: Acute Assessment and Plan: Continue statin (7) Chronic low back pain: Qualifiers: Back pain laterality: unspecified Sciatica presence: unspecified whether sciatica present Qualified Code(s): M54.5 - Low back pain; G89.29 - Other chronic pain Code(s): M54.5 - Low back pain; G89.29 - Other chronic pain Status: Acute Assessment and Plan: Tylenol as needed (8) Chronic GERD: Code(s): K21.9 - Gastro-esophageal reflux disease without esophagitis Status: Acute Assessment and Plan: Continue PPI (9) Obstructive sleep apnea (adult) (pediatric): Code(s): G47.33 - Obstructive sleep apnea (adult) (pediatric) Status: Acute Assessment and Plan: Continue CPAP Time Spent With Patient Time with patient: 25 - 35 minutes Subjective Date/time seen: 02/14/21 12:08 Interval history: Date of Service 02/14/21: The patient continues to have some urinary discomfort with dysuria, trouble starting his urinary stream, foul odor to his urine, some small pieces blood clots and abnormal color. It has gotten slightly better since admission yesterday on IV antibiotics. He does have some slight suprapubic abdominal discomfort as well. Otherwise he denies any fevers, chills, chest pain, shortness of breath, cough, nausea, vomiting, leg swelling or any other symptoms at this time. Review of Systems Review of Systems: All systems reviewed & are unremarkable except a
[2021-02-14 14:00] VITALS: BP 110/95; PULSE 92; RESP 18; TEMP 36.3; O2SAT 98
[2021-02-14] MEDS: ERTAPENEM 1 GM/NS 50 ML 1 GM/50 ML BAG IVPB (16:05)
--- NOTE | 2021-02-14 17:23 | WPDINFPN2 ---
Progress Note: A&P Assessment and Plan (1) Urinary tract infection: Code(s): N39.0 - Urinary tract infection, site not specified Status: Acute Assessment and Plan: UTI, symptomatic REC Ertapenem through 02/27. Midline and discharge planning Subjective Date/time seen: 02/14/21 17:23 Objective Data Vital Signs Vital Signs: Vital Signs - 24 hr 02/13/21 21:33 02/14/21 06:00 02/14/21 14:00 Temperature 36.6 C 36.5 C 36.3 C L Pulse Rate 70 92 Respiratory Rate 18 16 18 Blood Pressure 135/63 125/71 110/95 H Pulse Oximetry 97 97 98 Intake/Output Intake/Output: Intake & Output 02/11/21 02/12/21 02/13/21 02/14/21 23:59 23:59 23:59 23:59 Intake Total 1050 1150 Output Total 725 Balance 1050 425 Meds/Results Medications: Active Medications Generic Name Dose Route Start Last Admin Trade Name Freq PRN Reason Stop Dose Admin Acetaminophen 650 mg 02/13/21 19:02 02/14/21 06:48 Acetaminophen 325 Mg Tablet PO 650 mg Q4H PRN Administration Mild Pain (1-3) or Fever Amlodipine Besylate 5 mg 02/14/21 09:00 02/14/21 08:26 Amlodipine Besylate 5 Mg Tablet PO 5 mg DAILY LUCY Administration Aspirin 81 mg 02/14/21 08:00 02/14/21 08:26 Aspirin 81 Mg Chewable Tablet PO 81 mg DAILY@0800 LUCY Administration Atorvastatin Calcium 40 mg 02/14/21 09:00 02/14/21 08:26 Atorvastatin 40 Mg Tablet PO 40 mg DAILY LUCY Administration Diazepam 5 mg 02/13/21 23:01 02/13/21 23:54 Diazepam (*Crx) 5 Mg Tablet PO 5 mg HS PRN Administration Insomnia Diclofenac Sodium 75 mg 02/13/21 23:01 02/14/21 08:37 Diclofenac Sod 75 Mg Tablet.Ec PO 75 mg BID PRN Administration arthritis pain Enoxaparin Sodium 40 mg 02/15/21 09:00 Enoxaparin 40 Mg/0.4 Ml Syringe SUB-Q DAILY LUCY Finasteride 5 mg 02/14/21 09:00 02/14/21 08:26 Finasteride 5 Mg Tablet PO 5 mg DAILY LUCY Administration Fluticasone Propionate 2 spray 02/14/21 09:00 02/14/21 08:26 Fluticasone Propionate 0.05% Na Spr 16 Gm Btl (*Bkc) NASAL 2 spray DAILY LUCY Administration Ertapenem 1 gm in 50 mls @ 100 mls/hr 02/14/21 15:00 02/14/21 16:40 Invanz 1 Gm/Ns 50 Ml IVPB Infused Q24H LUCY Infusion Ondansetron HCl 4 mg 02/13/21 19:02 Ondansetron Inj 4 Mg/2 Ml Vial IV PUSH Q4H PRN Nausea Pantoprazole Sodium 40 mg 02/14/21 07:30 02/14/21 06:42 Pantoprazole 40 Mg Tablet PO 40 mg DAILY@0730 LUCY Administration Tamsulosin HCl 0.4 mg 02/14/21 09:00 02/14/21 16:10 Tamsulosin Hcl 0.4 Mg Capsule PO 0.4 mg BID LUCY Administration Vitamin D 1,000 units 02/14/21 09:00 02/14/21 08:26 Cholecalciferol 1,000 Units Tablet PO 1,000 units DAILY LUCY Administration Radiology Results: ITS Impressions Abdomen/Pelvis CT 02/13/21 17:45 IMPRESSION: Emphysematous cystitis Bilateral nonobstructive nephrolithiasis Right renal cysts Extensive diverticulosis of left and right colon Small sliding hiatal hernia Labs Labs: Laboratory Results - last 24 hr 02/13/21 02/13/21 17:36 17:36 WBC 8.5 RBC 5.57 Hgb 15.6 Hct 47.0 MCV 84.4 MCH 28.0 MCHC 33.2 RDW 14.4 Plt Count 189 MPV 9.3 Immature Gran % (Auto) 1.2 H Neut % (Auto) 78.0 H Lymph % (Auto) 10.9 L [place] % (Auto) 6.4 Eos % (Auto) 2.7 Baso % (Auto) 0.8 Lymph # (Auto) 0.93 [place] # (Auto) 0.5 Eos # (Auto) 0.2 Baso # (Auto) 0.1 Abs Immat Gran (auto) 0.10 H Absolute Neuts (auto) 6.6 Absolute Nucleated RBC 0.0 Nucleated RBC % 0.0 Sodium 142 Potassium 4.1 Chloride 107 Carbon Dioxide 26 Anion Gap 9 BUN 18 Creatinine 0.90 Estim Creat Clear Calc 89 Estimated GFR > 60 Glucose 121 H Calcium 9.6
[2021-02-14] MEDS: diazePAM (*CRX) 5 MG TABLET PO (21:41)
[2021-02-14 22:00] VITALS: BP 143/74; PULSE 68; RESP 14; TEMP 36.9; O2SAT 97
--- NOTE | 2021-02-14 22:45 | CONS_ITS ---
DATE OF CONSULTATION: 02/14/2021 REASON FOR CONSULTATION: UTI. HISTORY OF PRESENT ILLNESS: A 70-year-old male who has had 2 years of frequent urinary tract infections by his description, although the amount of true infection versus simple positive cultures is not apparent on speaking with the patient. He has had postvoid residuals, which have been normal in the past, but he does have known prostate enlargement. He has had past cystoscopy and at one point had obliteration of a kidney stone as there was concern over it being a nidus of infection. The patient was in his usual state of health until 3 days before admission when he awoke with new and abrupt onset of dysuria with urethral burning. Also mild urinary hesitancy, also urinary frequency. Also suprapubic discomfort without arie pain. One day before admission, he thinks he had passage of some dark flecks of material without any gross hematuria as such. No fever, chills, or sweats. No recent antibiotics. He has had past multiple positive urine culture that I reviewed in the computer system. He had a scheduled appointment with his urologist 1-day before admission and at that point his voiding symptoms had improved and no intervention was undertaken. However, as his symptoms recurred on the evening prior to admission he presented to the emergency room yesterday and underwent CT followed by antibiotics. He is now on ertapenem. Consultation requested. No immunosuppressants. No recent bladder surgery. No events here in the hospital. ALLERGIES: CIPROFLOXACIN CAUSED TENDON PAIN. OTHERS NOT PERTINENT. HABITS: No tobacco. Social drinker. No illicit drugs. PRESENT MEDICATIONS: See above. PAST MEDICAL HISTORY: Known hydroceles, hypertension, GERD, hyperlipidemia, [place]. Osteoarthritis with bilateral knee replacement, the right side being done about 2 years ago and the patient believes responsible for his recurrent UTI in terms of perioperative catheter. Also cervical spine fusion, lumbar surgery, and left rotator cuff repair. REVIEW OF SYSTEMS: Right rotator cuff pain and diminished range of motion. 14-point review is otherwise negative. FAMILY HISTORY: No stone disease. Positive for diabetes, prostate cancer. Others not pertinent. 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 Lives in [place]. 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 PHYSICAL EXAMINATION: GENERAL: Elderly male, who appears younger than his actual age. No acute distress since arrival yesterday. VITAL SIGNS: Afebrile. 92, 18, 110/95, 98% on room air. SKIN: Few ecchymoses. No rashes. Warm and dry. NODES: No cervical adenopathy. EENT: The conjunctivae are normal. The oropharynx, oral mucosa normal. NECK: No masses, thyromegaly, or meningismus. LUNGS: Clear to auscultation and percussion. No CVAT. CARDIAC: Regular rate and rhythm without murmur, gallop, or rub. Pulses are 2+ and equal. ABDOMEN: Nontender, soft. No organomegaly. No masses. EXTREMITIES: No clubbing, cyanosis, edema. MUSCULOSKELETAL: Knees have no evidence of arthritis or infection. NEUROLOGIC: Awake, alert, oriented, appropriate. Normal gait. LABORATORY DATA: His outpatient urine culture performed 2 days before admission, reviewed by myself, showed an ESBL-producing Klebsiella pneumoniae. Blood cultures not done until today. Other labs show white count 11.4 yesterday, 8.5 today; hemoglobin 15.6, platelets are 189. Differential normal. Chemistry panel normal other than a glucose of 121. Urinalysis, multiple abnormalities, which are reviewed. RADIOLOGY: CT abdomen and pelvis performed yesterday. Emphysematous bladder cystitis and right renal cysts. Tiny nonobstructing stones right and left sides. Air-fluid level in the bladder lumen. DDD,
[2021-02-15 05:34] LABS: Basophils Absolute Auto 0.1 K/mm3 (0.0-0.1); Basophils Percent Auto 0.9 % (0.2-1.2); Eosinophils Absolute Auto 0.3 K/mm3 (0-0.3); Eosinophils Percent Auto 4.2 % (0-4.4); Hematocrit 42.8 % (42.0-52.0); Immature Granulocyte Absolute 0.07 K/mm3 (0.00-0.031); Immature Granulocyte Percent A 1.1 % (0-0.5); Lymphocytes Absolute Auto 0.89 K/mm3 (0.9-3.2); Lymphocytes Percent Auto 13.9 % (18.3-44.2); Mean Corpuscular HGB Conc 32.7 g/dl (32-36); Mean Corpuscular Hemoglobin 27.9 pg (26-34); Mean Corpuscular Volume 85.3 fl (80-100); Monocytes Absolute Auto 0.5 K/mm3 (0.1-0.6); Monocytes Percent Auto 7.2 % (2.6-8.5); Neutrophils Absolute Auto 4.6 K/mm3 (1.3-6.7); Neutrophils Percent Auto 72.7 % (45.5-73.1); Platelet Count Result 175 k/mm3 (150-375); Red Blood Count 5.02 M/mm3 (4.6-6.20); Red Cell Distribution Width 14.2 % (11.5-14.5); White Blood Count 6.4 K/mm3 (4.5-10.0)
[2021-02-15 05:50] LABS: Anion Gap 5 mmol/L (8-16); Blood Urea Nitrogen 14 mg/dL (9-20); Carbon Dioxide 27 mmol/L (22-30); Chloride 107 mmol/L (98-107); Estimated CRCL calculation 100 ml/min; Estimated Glomerular Filt Rate > 60; Glucose 119 mg/dL (65-110); Sodium 139 mmol/L (137-145)
[2021-02-15 06:00] VITALS: BP 130/87; PULSE 98; RESP 16; TEMP 36.4; O2SAT 98
[2021-02-15] MEDS: PANTOPRAZOLE 40 MG TABLET PO (06:35)
[2021-02-15 09:09] VITALS: BP 140/78; PULSE 80; RESP 16; O2SAT 98
[2021-02-15] MEDS: ASPIRIN 81 MG CHEWABLE TABLET PO (09:11)
[2021-02-15] MEDS: amLODIPine BESYLATE 5 MG TABLET PO (09:11)
[2021-02-15] MEDS: FINASTERIDE 5 MG TABLET PO (09:12)
[2021-02-15] MEDS: ENOXAPARIN 40 MG/0.4 ML SYRINGE SUB-Q (09:12)
[2021-02-15] MEDS: ATORVASTATIN 40 MG TABLET PO (09:12)
[2021-02-15] MEDS: CHOLECALCIFEROL 1,000 UNITS TABLET 1000 UNITS PO (09:12)
[2021-02-15] MEDS: FLUTICASONE PROPIONATE 0.05% NA SPR 16 GM BTL (*BKC) 2 SPRAY NASAL (09:12)
[2021-02-15] MEDS: TAMSULOSIN HCL 0.4 MG CAPSULE PO (09:12)
[2021-02-15 14:00] VITALS: BP 131/74; PULSE 90; RESP 18; TEMP 36.1; O2SAT 95
[2021-02-15] MEDS: ERTAPENEM SODIUM 0.5 GM in SODIUM CHLORIDE 0.9% IV 50 ML IVPB (14:00)
--- NOTE | 2021-02-15 16:08 | PM.DS ---
DS: Admitting Diagnosis Discharge Date 02/15/21 Admitting Diagnosis Urinary sx DS: Discharge Diagnosis Discharge Diagnosis (1) Urinary tract infection: Code(s): N39.0 - Urinary tract infection, site not specified Status: Acute Assessment and Plan: Patient is a 70-year-old man with a history of BPH, hydrocele, frequent UTIs, CAD, hypertension, who presented to the emergency room from his primary care's office for abnormal urine culture results. The patient states on Wednesday he developed urinary symptoms and on Wednesday called his urologist to ordered a urinalysis with reflux culture. Urine culture resulted growing Klebsiella pneumoniae ESBL with only IV antibiotics sensitive to the bacteria. The patient's urologist told him to go to his PCP who then sent into the emergency room for IV antibiotics for treatment of his UTI. Initial vitals showed elevated blood pressure 141/77, normal heart rate, afebrile, normal oxygenation on room air. Initial labs showed normal white blood cell count, elevated neutrophils at 78%. Normal H&H. Normal BMP other than glucose of 121. Urinalysis on arrival grew 3+ leukocyte esterase, and greater than 75 WBCs and 1+ bacteria but we are adding you the results of his urine culture as outpatient and so he was admitted for a multi-drug resistant UTI and started on IV Zosyn. The patients abx were switched to IV Ertapenem since it is every 24 hour dosing and better for Klebsiella ESBL. Infectious disease evaluated him and recommended 14 total days of IV Abx Midline was placed and 12 more days of IV abx were ordered. He was discharged home with not having any urinary symptoms. Post void residual had about 130 cc retaining,which is not bad. Told him to follow up with his Urologist in 1 week. He is stable for discharge to give himself infusions until 02/27. He understands and agrees with the plan. All questions answered. (2) MDRO (multiple drug resistant organisms) resistance: Status: Acute (3) Extended spectrum beta lactamase (ESBL) resistance: Code(s): Z16.12 - Extended spectrum beta lactamase (ESBL) resistance Status: Acute (4) CAD (coronary artery disease): Code(s): I25.10 - Atherosclerotic heart disease of [place] coronary artery without angina pectoris Status: Acute Assessment and Plan: Stable. Denies any chest pain. Continue home meds (5) Benign essential hypertension: Code(s): I10 - Essential (primary) hypertension Status: Acute Assessment and Plan: Stable. Blood pressure normal today at 131/74. Continue home meds (6) Mixed hyperlipidemia: Code(s): E78.2 - Mixed hyperlipidemia Status: Acute Assessment and Plan: Continue statin (7) Chronic low back pain: Qualifiers: Back pain laterality: unspecified Sciatica presence: unspecified whether sciatica present Qualified Code(s): M54.5 - Low back pain; G89.29 - Other chronic pain Code(s): M54.5 - Low back pain; G89.29 - Other chronic pain Status: Acute Assessment and Plan: Tylenol as needed (8) Chronic GERD: Code(s): K21.9 - Gastro-esophageal reflux disease without esophagitis Status: Acute Assessment and Plan: Continue PPI (9) Obstructive sleep apnea (adult) (pediatric): Code(s): G47.33 - Obstructive sleep apnea (adult) (pediatric) Status: Acute Assessment and Plan: Continue CPAP DS: Summary Hospital Course Hospital Course: See above Status at Discharge Cognitive/behavioral status at discharge: Stable, improved. Time Spent with Patient Time attestation: Total time spent providing and/or coordinating discharge services: 41 Time spent: Greater than 30 minutes Exam Narrative: General: 70-year-old man sitting up in the chair talking to the nurse. Appears comfortable. In no acute distress. Skin: No jaundice or cyanosis. Good skin turgor. Neck: Full
== END 2021-02-15 18:40 | disposition home health service (06) | DRG 690 ==
LOC: ANHED 19:07 → ANH2MED 20:09
PROVIDERS: Emergency Medicine; Physician Assistant; Admitting Provider Internal Medicine; Emergency Provider Emergency Medicine; PCP Internal Medicine; Visit Provider Internal Medicine
DX: N39.0 Urinary tract infection, site not specified (principal); Z16.12 Extended spectrum beta lactamase (ESBL) resistance; B96.1 Klebsiella pneumoniae [K. pneumoniae] as the cause of diseases classified elsewhere; N40.0 Benign prostatic hyperplasia without lower urinary tract symptoms; I25.10 Atherosclerotic heart disease of native coronary artery without angina pectoris; E78.2 Mixed hyperlipidemia; I10 Essential (primary) hypertension; M54.50 Low back pain, unspecified; G89.29 Other chronic pain; K21.9 Gastro-esophageal reflux disease without esophagitis; G47.33 Obstructive sleep apnea (adult) (pediatric); R73.03 Prediabetes; Z28.21 Immunization not carried out because of patient refusal; Z87.440 Personal history of urinary (tract) infections; Z87.442 Personal history of urinary calculi
CPT/HCPCS: 36415; 36569; 74176; 80048; 81001; 85025; 87040; 87077; 87086; 87088; 87186; 96365; 99285; A9270; C1751; G0378; J1335; J1650; J2543; J7030

== ENCOUNTER → 2022-11-28 08:38 | Emergency (ER) | payer MEDICARE, SELFPAY | END | disposition left against medical advice (07) | PROVIDERS: PCP Family Medicine | DX: Z53.21 Procedure and treatment not carried out due to patient leaving prior to being seen by health care provider (principal) | CPT/HCPCS: 99199 ==

== ENCOUNTER 2022-11-28 08:39 | Emergency (ER) | payer MEDICARE, SELFPAY ==
--- NOTE | 2022-11-28 08:41 | ED.EAR ---
HPI - Ear Problem General Chief complaint: Ear Stated complaint: Lt Ear Irritation Time Seen by Provider: 11/28/22 08:40 Source: patient Mode of arrival: ambulatory Limitations: no limitations History of Present Illness HPI Narrative: Blaine is a 72-year-old male patient presenting to the clinic today with complaints of left ear pain were little over 2 weeks. He reports he has been having stabbing pain in the left ear that comes and goes for a few seconds. Rates the pain 9/10 when it occurs. Wears hearing aids. Also has seasonal allergies with nasal congestion. Related Data Home Medications Medication Instructions Recorded Confirmed metoprolol succinate 25 mg 50 mg PO DAILY 07/05/20 11/28/22 tablet,extended release 24 hr (Toprol XL) Vitamin D3 25 mcg PO DAILY 02/13/21 11/28/22 aspirin 81 mg chewable tablet 81 mg PO DAILY 02/13/21 11/28/22 Allergies Allergy/AdvReac Type Severity Reaction Status Date / Time oxaprozin Allergy Unknown Verified 11/28/22 08:41 ciprofloxacin AdvReac tendon pain Verified 11/28/22 08:41 Review of Systems Review of Systems: Pertinent positives per HPI. Patient denies any fever, chills, rash, headache, visual changes, dizziness, cough,sore throat, shortness of breath, chest pain, palpitations, nausea, vomiting, diarrhea, constipation, abdominal pain, or any urinary issues. [facility] Past Medical History Medical History Arthritis Benign essential hypertension Benign prostatic hyperplasia Cyst of scrotum Gastroesophageal reflux disease Hyperlipidemia Hypertension Mixed hyperlipidemia Nephrolithiasis Obstructive sleep apnea (adult) (pediatric) Prediabetes Primary insomnia Primary osteoarthritis involving multiple joints UTI (urinary tract infection) Surgical History Surgical History H/O right knee surgery History of bilateral knee replacement History of fusion of cervical spine History of hemorrhoidectomy History of lumbar surgery History of repair of left rotator cuff Family History Family History Mother Emphysema lung Chronic obstructive pulmonary disease Other Malignant neoplasm of prostate Mother Chronic obstructive pulmonary disease FH: emphysema Sibling Diabetes mellitus Social History Social History Social History: The patient lives in [place] with his . 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 Lifelong nonsmoker. Drinks alcohol once a week in moderation. No illicit substance abuse. Designates his , Roxana, as his surrogate decision maker. Code status: Full code. Smoking status: Never smoker Second hand tobacco smoke exposure: No Alcohol intake: current Drinks per week: 4 Alcohol use details: social Substance use: never Substance use type: does not use and marijuana Last use: once a month Lack of Transportation: No Lack of Food: Never True Current Housing: I Have Housing Concerned About Future Housing: No Difficulty Paying Gas/Electric Bills: No Difficulty Paying for Meds: No Currently Unemployed: No Education: Trade/Vocational Certificate Difficulty w/ Childcare or Family Care: No Living arrangements: with family Occupation/Education: retired Gender identity (if verbalized by the patient): Male Sexual Orientation (if Verbalized by the Patient): Straight or Heterosexual Spiritual care concerns: No Comments At the time of my signature, I reviewed and agree with the nursing past medical, surgical, social, and family history. There is no relevant family history pertinent to the patient complaint. Exam Narrative: General: Well-developed, well nourished, in no apparent distress Head: Normocephalic, atraumatic Eyes: Pupils equally round and reactive to light bilaterally, EOM int
[2022-11-28 08:50] VITALS: BP 142/92; PULSE 64; RESP 16; TEMP 35.9; O2SAT 99
[2022-11-28 08:58] VITALS: BP 142/92
== END 2022-11-28 09:00 | disposition home or self-care (01) ==
PROVIDERS: Emergency Provider Nurse Practitioner Family; PCP Family Medicine
DX: H69.92 Unspecified Eustachian tube disorder, left ear (principal); H65.02 Acute serous otitis media, left ear; I10 Essential (primary) hypertension; K21.9 Gastro-esophageal reflux disease without esophagitis; E78.2 Mixed hyperlipidemia; R73.03 Prediabetes; M15.9 Polyosteoarthritis, unspecified; Z79.82 Long term (current) use of aspirin
CPT/HCPCS: 99213; G0463

== ENCOUNTER 2023-04-22 08:01 | Emergency (ER) | payer MEDICARE, SELFPAY ==
[2023-04-22 08:12] VITALS: BP 147/72; PULSE 82; RESP 18; TEMP 36.6; O2SAT 97
--- NOTE | 2023-04-22 08:12 | ED.EAR ---
HPI - Ear Problem General Chief complaint: Ear Stated complaint: ear inf Time Seen by Provider: 04/22/23 08:10 Source: patient Mode of arrival: ambulatory Limitations: no limitations History of Present Illness HPI Narrative: Blaine is 73-year-old male patient presenting to the clinic today with complaints of left ear pain, body aches, chills, runny nose, cough times. He reports he recently got back from for [place]. Did at home COVID testing was negative. Related Data Home Medications Medication Instructions Recorded Confirmed metoprolol succinate 25 mg 50 mg PO DAILY 07/05/20 04/22/23 tablet,extended release 24 hr (Toprol XL) Vitamin D3 25 mcg PO DAILY 02/13/21 04/22/23 aspirin 81 mg chewable tablet 81 mg PO DAILY 02/13/21 04/22/23 Allergies Allergy/AdvReac Type Severity Reaction Status Date / Time oxaprozin Allergy Unknown Verified 04/22/23 08:25 ciprofloxacin AdvReac tendon pain Verified 04/22/23 08:25 Review of Systems Review of Systems: Pertinent positives per HPI. Patient denies any fever, rash, headache, visual changes, dizziness, sore throat, shortness of breath, chest pain, palpitations, nausea, vomiting, diarrhea, constipation, abdominal pain, or any urinary issues. [facility] Past Medical History Medical History Arthritis Benign essential hypertension Benign prostatic hyperplasia Cyst of scrotum Gastroesophageal reflux disease Hyperlipidemia Hypertension Mixed hyperlipidemia Nephrolithiasis Obstructive sleep apnea (adult) (pediatric) Prediabetes Primary insomnia Primary osteoarthritis involving multiple joints UTI (urinary tract infection) Surgical History Surgical History H/O right knee surgery History of bilateral knee replacement History of fusion of cervical spine History of hemorrhoidectomy History of lumbar surgery History of repair of left rotator cuff Family History Family History Mother Emphysema lung Chronic obstructive pulmonary disease Other Malignant neoplasm of prostate Mother Chronic obstructive pulmonary disease FH: emphysema Sibling Diabetes mellitus Social History Social History Social History: The patient lives in [place] with his . 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 Drinks alcohol once a week in moderation. No illicit substance abuse. Designates his , Roxana, as his surrogate decision maker. Code status: Full code. Smoking status: Never smoker Second hand tobacco smoke exposure: No Alcohol intake: current Drinks per week: 4 Alcohol use details: social Substance use: never Substance use type: does not use and marijuana Last use: once a month Lack of Transportation: No Lack of Food: Never True Current Housing: I Have Housing Concerned About Future Housing: No Difficulty Paying Gas/Electric Bills: No Difficulty Paying for Meds: No Currently Unemployed: No Education: Trade/Vocational Certificate Difficulty w/ Childcare or Family Care: No Living arrangements: with family Occupation/Education: retired Gender identity (if verbalized by the patient): Male Sexual Orientation (if Verbalized by the Patient): Straight or Heterosexual Spiritual care concerns: No Comments At the time of my signature, I reviewed and agree with the nursing past medical, surgical, social, and family history. There is no relevant family history pertinent to the patient complaint. Exam Narrative: General: Well-developed, well nourished, in no apparent distress Head: Normocephalic, atraumatic Eyes: Pupils equally round and reactive to light bilaterally, EOM intact, sclera and conjunctive clear, no discharge, lids normal Ears: TMs intact and clear, ear canals clear, no drainage, grossly hearing
== END 2023-04-22 08:40 | disposition home or self-care (01) ==
PROVIDERS: Emergency Provider Nurse Practitioner Family; PCP Family Medicine
DX: B34.9 Viral infection, unspecified (principal); J06.9 Acute upper respiratory infection, unspecified; H92.02 Otalgia, left ear; I10 Essential (primary) hypertension; Z79.899 Other long term (current) drug therapy; Z79.82 Long term (current) use of aspirin; E78.2 Mixed hyperlipidemia
CPT/HCPCS: 87804; 99213; G0463

== ENCOUNTER 2024-03-15 14:29 | Outpatient (CLI) | payer MEDICARE, SELFPAY ==
--- NOTE | ~2024-03-15 | XR_ITS ---
[id number] Ordering provider: Maryanne Zheng APRN History: . M54.5 - Low back pain . Comparison: None. FINDINGS: VERTEBRAL BODIES: Normal height and alignment. No visible fracture or subluxation. The dens is intact . Fusion of the left kidney. C3-C4 and C5-C6 is noted. DISK SPACES: Severe narrowing of the disc C3-C4 and C6-C7 is noted. Multilevel severe facet joint dis ease. Multilevel uncovertebral joint osteoarthritic changes. PARASPINOUS SOFT TISSUES: No prevertebral soft tissue swelling. IMPRESSION: No acute osseous abnormality cervical spine. Multilevel facet joint disease, degenerative disc disease and uncovertebral joint osteoarthritic zayas ges Reviewed, dictated and finalized at location A. PHONE OPERATOR IMPRESSION: No acute osseous abnormality cervical spine. Multilevel facet joint disease, degenerative disc disease and uncovertebral addis nt osteoarthritic changes
--- NOTE | ~2024-03-15 | XR_ITS ---
XR hip BI 2V w AP pelvis Ordering provider: Maryanne Zheng APRN History: . M54.10 - Radiculopathy, site unspecified . Comparison: None. FINDINGS: BONES: No acute fracture or dislocation. HIP JOINT SPACES: Bilateral hip moderate osteoarthritic changes. SACROILIAC JOINT SPACES/LUMBAR SPINE: The sacroiliac joint spaces shows bilateral sacroiliitis.. Mild degenerative changes of the visualized lower lumbar spine. PUBIC SYMPHYSIS: Normal. SOFT TISSUES: Normal. IMPRESSION: No acute osseous abnormality of the bilateral hips and pelvis. Reviewed, dictated and finalized at location A. ERCIAL LEASING MANAGER
--- NOTE | ~2024-03-15 | XR_ITS ---
3 VIEWS LUMBAR SPINE Ordering provider: Maryanne Zheng APRN History: . M54.5 - Low back pain . Comparison: None. FINDINGS: VERTEBRAL BODIES: No visible fracture or subluxation. DISK SPACES: Severe narrowing of the disc spaces L4-L5 and L5-S1. Mild narrowing of the disc spaces L 3-L4 and L2-L3. Severe facet joint disease at the level of L4-L5 and L5-S1. SOFT TISSUES: Calcification the left kidney area suggestive of a stone. Clinical correlation and foll ow-up advised. IMPRESSION: No acute osseous abnormality lumbar spine. Multilevel degenerative disc and facet joint disease. Left kidney stone. Reviewed, dictated and finalized at location A. PER [employer]
== END 2024-03-15 14:30 | disposition home or self-care (01) ==
PROVIDERS: PCP Family Medicine; Visit Provider Nurse Practitioner Family
DX: M50.30 Other cervical disc degeneration, unspecified cervical region (principal); M51.369 Other intervertebral disc degeneration, lumbar region without mention of lumbar back pain or lower extremity pain; N20.0 Calculus of kidney
CPT/HCPCS: 72040; 72100; 73521

== ENCOUNTER 2024-05-24 10:50 | Outpatient (CLI) | payer MEDICARE, SELFPAY ==
--- NOTE | ~2024-05-24 | MR_ITS ---
EXAMINATION: MR cervical spine wo con DATE: 05/24/2024 11:19 INDICATION: Neck pain and right shoulder pain TECHNIQUE: Magnetic resonance imaging (MRI) of the cervical spine was performed without intravenous c ontrast. Sequences included sagittal T2-weighted FSE, sagittal T2-weighted FS FSE, sagittal T1-weight ed FSE, axial MERGE and axial T2-weighted FSE. COMPARISON: None FINDINGS: There is anterior fusion of C5 on C6. Straightening of the normal cervical lordosis with 2 mm anterol isthesis C4 on C5, 2 mm retrolisthesis C6 on C7 and 1 mm anterolisthesis C7 on T1. Severe osteoarthri tis at the atlantoaxial articulation. Vertebral body heights are normal. Bone marrow signal intensit y is normal. Severe disc height loss with prominent anterior endplate osteophytes at C6-C7, moderate disc height loss at C3-C4 and mild disc height loss at C4-C5 and C7-T1. Cord signal intensity is norm al. Visualized cervical soft tissues are unremarkable. The following disc levels are specifically dis cussed: C2-C3: The disc does not extend beyond the endplate margin. There is mild right and moderate left unc overtebral joint osteoarthritis. There is moderate left and severe right facet joint osteoarthritis. There is mild to moderate left and moderate to severe right neural foraminal stenosis. There is no ce ntral canal stenosis. C3-C4: Small posterior disc osteophyte complex. There is moderate right uncovertebral joint osteoarth ritis. The left uncovertebral joint appears fused with moderate hypertrophic changes. There is modera te right facet joint osteoarthritis. Fusion with prominent hypertrophic change at the right facet addis nt. There is moderate right and moderate to severe left neural foraminal stenosis. There is mild cent ral canal stenosis. C4-C5: Disc is mildly bulging. There is moderate bilateral uncovertebral joint osteoarthritis. There is severe bilateral facet joint osteoarthritis. There is mild right and moderate to severe left neura l foraminal stenosis. There is mild central canal stenosis. C5-C6: The disc space and uncovertebral joints are fused. The left facet joint is also fused. There i s mild right facet joint osteoarthritis. There is mild right and moderate left neural foraminal steno sis. There is minimal central canal stenosis. C6-C7: Disc is bulging. There is severe bilateral uncovertebral joint osteoarthritis. There is mild l eft and moderate right facet joint osteoarthritis. There is moderate to severe bilateral neural maral inal stenosis. There is moderate central canal stenosis measuring 6-7 mm AP in the mid sagittal plane and indenting the ventral surface of the cord. C7-T1: Disc is mildly bulging. There is mild right and moderate left uncovertebral joint osteoarthrit is. There is severe bilateral facet joint osteoarthritis. There is mild right and mild to moderate le ft neural foraminal stenosis. There is minimal central canal stenosis. IMPRESSION: 1. Severe cervical spondylosis. Reviewed, dictated and finalized at location A. TESTER
== END 2024-05-24 10:51 | disposition home or self-care (01) ==
LOC: MICIMG 10:51
PROVIDERS: PCP Family Medicine; Visit Provider Pain Medicine Pain Medicine
DX: M47.22 Other spondylosis with radiculopathy, cervical region (principal)
CPT/HCPCS: 72141

== ENCOUNTER 2024-10-05 16:00 | Outpatient (CLI) | payer MEDICARE, SELFPAY ==
--- NOTE | ~2024-10-05 | MR_ITS ---
MRI of the lumbar spine Clinical History: Radiculopathy Technique: Axial T2-weighted images, and sagittal T1-weighted, T2-weighted, and and T2 fat-sat images were acquired. Findings: There is no fracture or subluxation of the lumbar spine. Vertebral bodies maintain alignmen t and alignment. No bone marrow signal abnormality seen. At L1-L2, there is minimal disc bulge with moderate facet hypertrophy. No spinal canal stenosis or ne ural foraminal narrowing. At L2-L3, there is mild to moderate degenerative disc narrowing. Diffuse disc bulge and moderate to a dvanced facet arthropathy contribute to severe spinal canal stenosis/thecal sac compression. There is moderate to advanced bilateral neural foraminal narrowing. L3-L4, there is moderate degenerative disc narrowing. Disc bulge and severe facet arthropathy are pre sent. No arie central canal stenosis. There is moderate to advanced right neural foraminal narrowing , and moderate left neural foraminal narrowing. At L4-L5, there is moderate degenerative disc narrowing. There is diffuse disc bulge with superimpose d right paracentral to right foraminal protrusion. There is moderate to advanced facet arthropathy. T here is right lateral recess stenosis. There is severe bilateral neural foraminal narrowing. At L5-S1, there is severe degenerative disc narrowing. There is mild disc bulge with moderate facet a rthropathy. No central canal stenosis. There is severe bilateral neural foraminal narrowing. Paravertebral soft tissues are unremarkable. Impression: Advanced degenerative spondylosis throughout the lumbar spine, as detailed above. Reviewed, dictated and finalized at [facility]. Impression: Advanced degenerative spondylosis throughout the lumbar spine, as detailed john davis
== END 2024-10-05 16:01 | disposition home or self-care (01) ==
LOC: MICIMG 16:01
PROVIDERS: PCP Family Medicine; Visit Provider Nurse Practitioner Family
DX: M47.26 Other spondylosis with radiculopathy, lumbar region (principal)
CPT/HCPCS: 72148

== ENCOUNTER 2025-04-03 09:28 | Outpatient (CLI) | payer MEDICARE, SELFPAY ==
--- NOTE | ~2025-04-03 | XR_ITS ---
EXAMINATION: XR wrist LT w scaphoid, 04/03/2025 9:33 HACK DRIVER HISTORY: M25.539 - Pain in unspecified wrist COMPARISON: No comparisons available. Findings: There is a remote appearing corticated fracture of the ulnar styloid process, no acute fracture is identified. Moderate degenerative changes noted with chondrocalcinosis. Soft tissues unremarkable. Impression: No acute fracture or malalignment. Reviewed, dictated and finalized at location P. DRIVER Impression: No acute fracture or malalignment.
--- NOTE | ~2025-04-03 | XR_ITS ---
EXAMINATION: XR finger 2nd LT min 2V, 04/03/2025 9:33 PEDIATRIC LICENSED PRACTICAL NURSE HISTORY: M79.645 - Pain in left finger(s) COMPARISON: No comparisons available. Findings: No acute fracture or malalignment. No significant degenerative changes. Within the soft tissues adjacent to the distal phalanx along the ventral aspect there is a 2 x 2 mm radiopaque foreign body. Impression: Foreign body detailed above Reviewed, dictated and finalized at location P. ATRIC LICENSED PRACTICAL NURSE Impression: Foreign body detailed above
== END 2025-04-03 09:29 | disposition home or self-care (01) ==
LOC: MICIMG 09:29
PROVIDERS: PCP Family Medicine; Visit Provider Family Medicine
DX: M79.645 Pain in left finger(s) (principal); M25.532 Pain in left wrist
CPT/HCPCS: 73110; 73140